=== PATIENT | male | born 1970 | race Caucasian/White ===

== ENCOUNTER 2016-12-15 19:44 | Emergency (ER) | payer MEDICARE ==
[~2016-12-15] VITALS: Ht 154.9 cm; Wt 111.5 kg
[2016-12-15 20:57] LABS: HEMATOCRIT 40.3 % (38.0-50.0); MCH 27.6 PG (29.0-34.0); MCHC 33.7 G/DL (30.0-36.0); MCV 81.9 FL (86-99); MEAN PLAT.VOLUME 8.8 uM^3 (9.0-12.4); PLATELET COUNT 280 K/uL (156-360); RBC DIS.WIDTH-CV 12.9 % (11.8-14.6); RBC DIS.WIDTH-SD 38.5 % (39-53); RED BLOOD COUNT 4.92 M/uL (4.00-5.50)
[2016-12-15 21:09] LABS: CHLORIDE 107 mEq/L (99-109); POTASSIUM 4.1 mEq/L (3.7-5.4); SODIUM 141 mEq/L (136-147)
[2016-12-15 21:11] LABS: GLUCOSE 91 mg/dL (70-99)
[2016-12-15 21:12] LABS: ANION GAP 9 MEQ/L (2-14)
[2016-12-15 21:13] LABS: TOTAL BILIRUBIN 0.4 mg/dL (0.0-1.0)
[2016-12-15 21:15] LABS: ALKALINE PHOSPHATASE 64 IU/L (3-129); GFR ESTIMATE (CALCULATED) > 59 mL/min/
[2016-12-15 21:16] LABS: UREA NITROGEN (BUN) 15 mg/dL (9-23)
[2016-12-15 22:31] VITALS: BP 122/74
[2016-12-16 09:32] LABS: LYME DISEASE SEROLOGY SCREEN NEGATIVE (NEGATIVE)
== END 2016-12-15 22:33 | disposition home or self-care (01) ==
LOC: EME 19:44
PROVIDERS: Nurse Practitioner Family
DX: G51.4 Facial myokymia (principal); M62.838 Other muscle spasm
CPT/HCPCS: 80053; 85027; 86618; 99281; 99283; J7512